=== PATIENT | female | born 1940 | race African-American/Black ===

== ENCOUNTER → 2016-08-10 | Outpatient (CLI) | payer OTHER | LOC: MRI 07:03 | DX: M51.36 Other intervertebral disc degeneration, lumbar region (principal) ==

== ENCOUNTER → 2018-05-24 | Outpatient (CLI) | payer OTHER ==
[~2018-05-24] VITALS: Ht 307.3 cm; Wt 83.0 kg
[~2018-05-24] MED LIST: ALEVE220 MG PO; GLUCOPHAGE XR500 MG PO; HYDROCHLOROTHIA25 M2 PO; IRBESARTAN300 MG PO
--- NOTE | ~2018-05-24 | P ---
[facility] [place] [address] PROCEDURE REPORT Name: MELIZA CESAR Room #: REG [facility]#: [id number] Admission: 05/24/18 ������������������ Attend Phys: Brennon Umana MD Discharge: ������������������ Date of : 38 Report #: [id number] THIS REPORT FOR: //name// CC: Brennon Roque MD BRIEF HISTORY: The patient is a 78-year-old woman for average risk screening colonoscopy. Last colonoscopy was 10 years ago and per the patient's report, it was negative. PREOPERATIVE DIAGNOSIS: Average risk screening colonoscopy. POSTOPERATIVE DIAGNOSES: 1. Multiple colon polyps. 2. Moderate diverticulosis coli. 3. Small internal hemorrhoids. MEDICATIONS: Deep sedation with propofol per Anesthesia. SPECIMENS: 1. Polyp from 60 cm. 2. Polyp from 50 cm. 3. Polyp from 30 cm. 4. Polyp, rectum. ESTIMATED BLOOD LOSS: 3 mL. PROCEDURE: Colonoscopy to cecum and terminal ileum with sterile polypectomy and biopsy. FINDINGS: Prior to propofol sedation, procedure of colonoscopy was discussed with the patient as well as potential risks and its complications. She indicates she understands and desires to proceed. DESCRIPTION OF PROCEDURE: With the patient in left lateral decubitus position, digital examination was completed which revealed no abnormalities. Subsequently, the Olympus video colonoscope was introduced in the rectum, advanced under direct vision to the cecum. Done with minimal difficulty. The cecum was identified by the ileocecal valve and the appendiceal orifice. I was able to visualize the distal segment of the terminal ileum, which was inspected and noted to be unremarkable. At that point, the scope was slowly withdrawn and careful circumferential views were obtained. Upon slow withdrawal of the scope, the prep was excellent. Mucosa was within normal limits, normal vascular pattern, normal light reflex. As we withdrew the scope, no abnormalities were noted until the descending colon was reached and at 60 cm, a diminutive polyp was seen and removed with cold biopsy forceps. At 50 cm, a flat 8 mm polyp was [facility] [address] [place] [address] PROCEDURE REPORT Name: MELIZA CESAR Room #: REG [facility].#: [id number] Admission: 05/24/18 ������������������ Attend Phys: Brennon Umana MD Discharge: ������������������ Date of : 38 Report #: [id number] seen and removed by cold snare polypectomy. The scope was further withdrawn and she was noted to have modest sigmoid diverticulosis coli. Also, another diminutive polyp was removed with cold snare polypectomy at 30 cm. It was about 4 mm across. In the rectum, a 4-5 mm sessile polyp was seen and removed by cold snare polypectomy. Upon retroflexion, no additional abnormalities were seen. The scope was withdrawn. The patient tolerated the procedure well. CONDITION OF THE PATIENT UPON DISCHARGE: Following procedure, the patient drowsy, aroused, conversant. She will be discharged to home when fully ambulatory. INSTRUCTIONS TO THE PATIENT AND FAMILY AT THE TIME OF DISCHARGE: We will follow up on the pathology of the polyps. If 3 or more adenomas, she is to return in 3 years; if 1 or 2 adenomas, 5 years to be indicated; if none are adenomas, then no followup would be indicated. Also, suggest high-fiber diet for diverticular disease. Last colonoscopy was 10 years ago. Withdrawal time from the cecum was 18 minutes and 14 seconds. ��������������������������������������������� ���������������������������������������� By: ��������������������������������������������� 0823 1853 Brennon Umana MD /nt
--- NOTE | 2018-05-25 16:07 | PATH ---
[facility] [address] [place] [address] PATHOLOGY RPT PROCEDURE Name: MARSHALL CESARTIE LUIS Room #: REG [facility].#: [id number] ������������������ Admission: 05/24/18 ������������������ Date of : 38 Discharge: Report #: [id number] Path Case #: [id number] [facility] Accession Number: [id number] . 01 Material submitted: . PART A: POLYP AT 60CM PART B: POLYP AT 50CM PART C: POLYP AT 30CM PART D: POLYP AT RECTUM . 01 Clinical history: . Pre-OP DX: Screening Post-OP DX: Colon polyp . 02 Diagnosis: A. Polyp, at 60 cm, endoscopic biopsy: - Compatible with a hyperplastic polyp and a lymphoid aggregate. - Negative for dysplasia. . B. Polyp, at 50 cm, endoscopic biopsy: - Tubular adenoma. - Negative for high grade dysplasia. . C. Polyp, at 30 cm, endoscopic biopsy: - Tubular adenoma. - Negative for high grade dysplasia. . D. Polyp, at rectum, endoscopic biopsy: - Tubular adenoma. - Negative for high grade dysplasia. (IUV/db; 05/25/2018) LBQ/05/25/2018 . 02 Electronically signed: . Lory Soliz MD, Pathologist NPI- [id number] . 01 Gross description: . A. Received in formalin labeled "Mini Cesar, polyp at 60 cm," are 2 segments of bangura soft tissue measuring 1.1 x 0.3 x 0.2 cm in aggregate dimensions and ranging from 0.4 to 0.7 cm in maximum dimension. The specimen is submitted entirely in cassette A1. . B. Received in formalin labeled "Mini Cesar, polyp at 50 cm," are 3 segments of bangura soft tissue measuring 1.4 x 0.7 x 0.4 cm in aggregate dimensions and ranging from 0.5 to 0.6 cm in maximum dimension. The specimen is submitted entirely [place] [address] PATHOLOGY RPT PROCEDURE Name: MARSHALL CESARTIE LUIS Room #: REG [facility].#: [id number] ������������������ Admission: 05/24/18 ������������������ Date of : 38 Discharge: Report #: [id number] Path Case #: [id number] . C. Received in formalin labeled "Mini Cesar, polyp at 30 cm," is a single segment of bangura soft tissue measuring 0.4 cm in maximum dimension. The specimen is entirely submitted in cassette C1. . D. Received in formalin labeled "[place], Mini, polyp at rectum," is a single segment of bangura soft tissue measuring 0.6 cm in maximum dimension. The specimen is entirely submitted in cassette D1. (TSD; 05/24/2018) TOB/TOB . 02 Pathologist provided ICD-10: K63.5, D12.6, D12.8 . 02 CPT . 674627, 172491, 134121, 121470 Specimen Comment: A courtesy copy of this report has been sent to Specimen Comment: [phone], . Specimen Comment: Report sent to / DR FIGUEROA Performed at: [address], [place] [id number] MD Wesly Boone MD Phone: [phone] Performed at: [address] [id number] MD Lory Soliz MD Phone: [phone]
== END | disposition home or self-care (01) ==
LOC: GI 06:32
DX: Z12.11 Encounter for screening for malignant neoplasm of colon (principal); D12.5 Benign neoplasm of sigmoid colon; D12.8 Benign neoplasm of rectum; K63.5 Polyp of colon; K57.30 Diverticulosis of large intestine without perforation or abscess without bleeding; K64.8 Other hemorrhoids; I10 Essential (primary) hypertension; E11.9 Type 2 diabetes mellitus without complications; Z98.890 Other specified postprocedural states; Z79.899 Other long term (current) drug therapy
CPT/HCPCS: 62110; 62900

== ENCOUNTER 2019-04-02 19:58 | Emergency (ER) | payer OTHER ==
[~2019-04-02] VITALS: Ht 167.6 cm; Wt 82.6 kg
[2019-04-02 20:06] VITALS: BP 170/92
[2019-04-02] MEDS ORDERED: BENICAR40 MG PO (20:19)
== END 2019-04-02 20:54 | disposition home or self-care (01) ==
LOC: ER 19:58
DX: M75.52 Bursitis of left shoulder (principal); I10 Essential (primary) hypertension; E11.9 Type 2 diabetes mellitus without complications